=== PATIENT | female | born 1970 | race Caucasian/White ===

== ENCOUNTER 2020-08-20 13:50 | Emergency (ER) | payer SELFPAY ==
[~2020-08-20] VITALS: Wt 158.8 kg
[2020-08-20] MEDS ORDERED: FLUOXETINE HCL40 MG PO (14:02)
[2020-08-20] MEDS ORDERED: HYDROXYZINE PAM25 M1 PO (14:03)
[2020-08-20] MEDS ORDERED: XANAX1 MG PO (14:35)
== END 2020-08-20 14:45 | disposition home or self-care (01) ==
LOC: ED 13:50
DX: F41.9 Anxiety disorder, unspecified (principal); Z79.899 Other long term (current) drug therapy